=== PATIENT | female | born 1970 | race African-American/Black ===

== ENCOUNTER 2017-01-20 19:13 | Inpatient (IN) ==
[2017-01-20 20:02] LABS: MANUAL DIFF NEEDED? NO
[2017-01-20] MEDS ORDERED: NS 1,000 ML IV ONE (20:08)
[2017-01-20] MEDS ORDERED: ZOFRAN IV ONE (20:09)
[2017-01-20] MEDS ORDERED: DILAUDID IV ONE ×2 (20:09→22:02)
[2017-01-20 20:19] LABS: BASO% 0.1 % (0.0-0.8); EOS# 0.03 X1000 (0.0-0.7); EOS% 0.4 % (0.0-10.0); HEMOGLOBIN 12.9 g/dL (12.0-16.0); IMM GRAN# 0.02 X1000 (0.0-0.04); IMM GRAN% 0.2 % (0.0-0.5); LYMPH# 1.72 X1000 (1.2-3.4); LYMPH% 21.3 % (20.5-51.1); MCHC 31.5 g/dL (33-37); MCV 76.4 FL (81-99); MONO# 0.47 X1000 (0.11-0.59); MONO% 5.8 % (1.7-9.3); MPV 11.2 FL (7.4-10.4); NEUT% 72.2 % (42.2-75.2); PLT 293 X1000 (130-400); RBC 5.37 XMIL (4.2-5.4)
[2017-01-20] MEDS ORDERED: DILAUDID ONE (20:19)
[2017-01-20 20:39] LABS: AGAP 10; ALBUMIN 4.8 g/dL (3.5-5.0); ALKALINE PHOSPHATASE 83 U/L (32-104); AMYLASE 104 U/L (20-200); BUN 10 mg/dL (8-22); CALCIUM 10.7 mg/dL (8.8-10.2); CHLORIDE 101 mmol/L (98-107); COSMO 284; GOT 24 U/L (10-30); GPT 22 U/L (10-36); LIPASE 40 U/L (13-60); POTASSIUM 3.5 mmol/L (3.5-5.1); SODIUM 143 mmol/L (136-145); TCO2 32 mmol/L (25-35); TOTAL BILIRUBIN 0.39 mg/dL (0.20-1.00); TOTAL PROTEIN 8.8 g/dL (6.3-8.3)
[2017-01-20 22:01] LABS: URINE MICRO REVIEW NEEDED? NO; URINE SOURCE CLEAN CATCH
[2017-01-20 22:04] LABS: BILIRUBIN URINE NEGATIVE (NEGATIVE); BLOOD URINE NEGATIVE (NEGATIVE); COLOR YELLOW; GLUCOSE URINE NEGATIVE (NEGATIVE); LEUKOCYTES URINE NEGATIVE (NEGATIVE); NITRITE URINE NEGATIVE (NEGATIVE); PROTEIN URINE 30 mg/dL (NEGATIVE); TURBIDITY URINE CLEAR (CLEAR); UROBILINOGEN URINE NORMAL (NORMAL)
[2017-01-20 22:06] LABS: UR EPITHELIAL CELLS >10 /HPF (<10); URINE BACTERIA 2+ /HPF; URINE CULTURE NEEDED? YES; URINE RBC <10 /HPF (<10); URINE WBC <10 /HPF (<10)
[2017-01-20 22:14] LABS: SP GRAVITY URINE 1.005
[2017-01-20] MEDS ORDERED: SODIUM CHLORIDE 0.9% INJ ONE (22:46)
[2017-01-20] MEDS ORDERED: PHENERGAN IV ONE (22:46)
[2017-01-21] MEDS ORDERED: TYLENOL PO PRN (01:50)
[2017-01-21] MEDS ORDERED: ZOFRAN IV PRN (01:50)
[2017-01-21] MEDS ORDERED: ESTRADIOL TD SCH (01:50)
[2017-01-21] MEDS: NS 1,000 ML IV SCH ×2 (02:58→13:12)
[2017-01-21] MEDS: DILAUDID IV PRN ×4 (03:30→13:11)
[2017-01-21] MEDS: BENADRYL IV PRN ×2 (05:12→11:15)
[2017-01-21 06:08] LABS: MANUAL DIFF NEEDED? NO
[2017-01-21 06:17] LABS: BASO% 0.2 % (0.0-0.8); EOS# 0.02 X1000 (0.0-0.7); EOS% 0.3 % (0.0-10.0); HEMATOCRIT 38.1 % (37.0-47.0); HEMOGLOBIN 11.7 g/dL (12.0-16.0); LYMPH# 1.72 X1000 (1.2-3.4); LYMPH% 29.6 % (20.5-51.1); MCH 23.9 PG (27-31); MCHC 30.7 g/dL (33-37); MCV 77.8 FL (81-99); MONO# 0.58 X1000 (0.11-0.59); MPV 10.9 FL (7.4-10.4); NEUT% 59.9 % (42.2-75.2); PLT 231 X1000 (130-400)
[2017-01-21 06:35] LABS: INR 1.08; PROTIME 11.4 Seconds (9.2-11.7)
[2017-01-21 06:48] LABS: AGAP 9; ALBUMIN 4.2 g/dL (3.5-5.0); ALKALINE PHOSPHATASE 74 U/L (32-104); BUN 8 mg/dL (8-22); CALCIUM 8.8 mg/dL (8.8-10.2); CHLORIDE 104 mmol/L (98-107); COSMO 284; GOT 19 U/L (10-30); GPT 17 U/L (10-36); POTASSIUM 3.8 mmol/L (3.5-5.1); SODIUM 144 mmol/L (136-145); TCO2 31 mmol/L (25-35); TOTAL BILIRUBIN 0.37 mg/dL (0.20-1.00); TOTAL PROTEIN 7.1 g/dL (6.3-8.3)
[2017-01-21 09:42] LABS: URINE CULTURE NEEDED? NO; URINE MICRO REVIEW NEEDED? NO; URINE SOURCE CATH
[2017-01-21 09:53] LABS: BILIRUBIN URINE NEGATIVE (NEGATIVE); BLOOD URINE NEGATIVE (NEGATIVE); COLOR YELLOW; GLUCOSE URINE NEGATIVE (NEGATIVE); LEUKOCYTES URINE NEGATIVE (NEGATIVE); NITRITE URINE NEGATIVE (NEGATIVE); PH URINE 7.5; PROTEIN URINE TRACE mg/dL (NEGATIVE); TURBIDITY URINE CLEAR (CLEAR); UROBILINOGEN URINE NORMAL (NORMAL)
[2017-01-21 09:55] LABS: UR EPITHELIAL CELLS <10 /HPF (<10); URINE BACTERIA NEGATIVE /HPF; URINE RBC <10 /HPF (<10); URINE WBC <10 /HPF (<10)
[2017-01-21] MEDS ORDERED: CHLORASEPTIC SORE THROAT LOZENGE MT PRN (11:40)
[2017-01-21] MEDS: MORPHINE IV PRN ×2 (17:15→20:58)
[2017-01-21] MEDS ORDERED: CHLORASEPTIC SPRAY MT PRN (18:43)
[2017-01-21] MEDS ORDERED: DULCOLAX PR ONE (18:43)
[2017-01-22] MEDS: PROTONIX IV SCH ×3 (01:26→12:56)
[2017-01-22] MEDS: MORPHINE IV PRN ×5 (01:26→22:12)
[2017-01-22 06:40] LABS: MANUAL DIFF NEEDED? NO
[2017-01-22 06:58] LABS: BASO% 0.2 % (0.0-0.8); EOS# 0.04 X1000 (0.0-0.7); EOS% 0.7 % (0.0-10.0); HEMATOCRIT 33.7 % (37.0-47.0); HEMOGLOBIN 10.3 g/dL (12.0-16.0); LYMPH# 1.49 X1000 (1.2-3.4); LYMPH% 27.5 % (20.5-51.1); MCH 24.2 PG (27-31); MCHC 30.6 g/dL (33-37); MCV 79.1 FL (81-99); MONO# 0.73 X1000 (0.11-0.59); MONO% 13.5 % (1.7-9.3); MPV 11.4 FL (7.4-10.4); NEUT% 58.1 % (42.2-75.2); PLT 189 X1000 (130-400); RBC 4.26 XMIL (4.2-5.4)
[2017-01-22 07:03] LABS: AGAP 9; BUN 11 mg/dL (8-22); CALCIUM 9.1 mg/dL (8.8-10.2); CHLORIDE 104 mmol/L (98-107); COSMO 283; POTASSIUM 3.3 mmol/L (3.5-5.1); SODIUM 143 mmol/L (136-145); TCO2 30 mmol/L (25-35)
[2017-01-22] MEDS ORDERED: POTASSIUM CHLORIDE 40 MEQ in NS 250 ML IV ONE ×2 (09:00→10:00)
[2017-01-22] MEDS: NS 1,000 ML IV SCH ×2 (10:37→20:24)
[2017-01-22] MEDS: SODIUM CHLORIDE 0.9% INJ SCH (10:39)
[2017-01-22] MEDS: CORTISPORIN OTIC SUSP RIGHT EAR SCH ×3 (13:55→20:25)
[2017-01-22 19:43] LABS: MANUAL DIFF NEEDED? NO
[2017-01-22 19:48] LABS: EOS# 0.04 X1000 (0.0-0.7); EOS% 0.8 % (0.0-10.0); HEMATOCRIT 33.3 % (37.0-47.0); HEMOGLOBIN 10.2 g/dL (12.0-16.0); LYMPH# 1.07 X1000 (1.2-3.4); LYMPH% 20.8 % (20.5-51.1); MCH 24.2 PG (27-31); MCHC 30.6 g/dL (33-37); MCV 78.9 FL (81-99); MONO# 0.59 X1000 (0.11-0.59); MONO% 11.5 % (1.7-9.3); MPV 10.6 FL (7.4-10.4); NEUT% 66.9 % (42.2-75.2); PLT 184 X1000 (130-400); RBC 4.22 XMIL (4.2-5.4)
[2017-01-22] MEDS: FLAGYL 500 MG/NS 500 MG/100 ML IVPB IV SCH (20:24)
[2017-01-22 21:11] LABS: AGAP 13; BUN 11 mg/dL (8-22); CALCIUM 9.2 mg/dL (8.8-10.2); CHLORIDE 103 mmol/L (98-107); COSMO 280; POTASSIUM 3.9 mmol/L (3.5-5.1); SODIUM 141 mmol/L (136-145); TCO2 25 mmol/L (25-35)
[2017-01-22] MEDS: LEVAQUIN 750 MG/D5W 750 MG/150 ML IVPB IV SCH (22:13)
[2017-01-23] MEDS: NS 1,000 ML IV SCH ×4 (01:05→15:38)
[2017-01-23] MEDS: FLAGYL 500 MG/NS 500 MG/100 ML IVPB IV SCH ×4 (01:38→20:11)
[2017-01-23] MEDS: PROTONIX IV SCH ×2 (01:38→15:41)
[2017-01-23] MEDS: MORPHINE IV PRN ×2 (03:05→07:36)
[2017-01-23 07:25] LABS: AGAP 10; ALBUMIN 3.9 g/dL (3.5-5.0); ALKALINE PHOSPHATASE 62 U/L (32-104); BUN 8 mg/dL (8-22); CALCIUM 8.7 mg/dL (8.8-10.2); CHLORIDE 103 mmol/L (98-107); COSMO 273; GOT 15 U/L (10-30); GPT 11 U/L (10-36); POTASSIUM 3.8 mmol/L (3.5-5.1); SODIUM 138 mmol/L (136-145); TCO2 25 mmol/L (25-35); TOTAL BILIRUBIN 0.32 mg/dL (0.20-1.00); TOTAL PROTEIN 6.3 g/dL (6.3-8.3)
[2017-01-23] MEDS: PROZAC PO SCH ×2 (07:45→09:49)
[2017-01-23] MEDS: CORTISPORIN OTIC SUSP RIGHT EAR SCH ×5 (07:45→16:54)
[2017-01-23] MEDS ORDERED: ATIVAN IV PRN (09:11)
[2017-01-23] MEDS: BENADRYL IV PRN ×2 (11:23→20:11)
[2017-01-23] MEDS: SODIUM CHLORIDE 0.9% INJ SCH (15:41)
[2017-01-23] MEDS: DILAUDID IV PRN ×2 (15:41→20:12)
[2017-01-23] MEDS: LEVAQUIN 750 MG/D5W 750 MG/150 ML IVPB IV SCH (22:35)
[2017-01-24] MEDS: CORTISPORIN OTIC SUSP RIGHT EAR SCH ×4 (00:39→13:03)
[2017-01-24] MEDS: DILAUDID IV PRN ×2 (00:39→06:28)
[2017-01-24] MEDS: FLAGYL 500 MG/NS 500 MG/100 ML IVPB IV SCH ×2 (02:05→07:55)
[2017-01-24] MEDS: PROTONIX IV SCH (02:05)
[2017-01-24] MEDS: SODIUM CHLORIDE 0.9% INJ SCH (02:05)
[2017-01-24] MEDS: NS 1,000 ML IV SCH ×3 (02:05→07:55)
[2017-01-24] MEDS: BENADRYL IV PRN (06:28)
[2017-01-24] MEDS: LINZESS PO SCH ×2 (06:28→08:47)
[2017-01-24 07:52] VITALS: BP 135/82
[2017-01-24] MEDS: PROZAC PO SCH ×2 (07:53→08:00)
[2017-01-24] MEDS ORDERED: CIPRO PO SCH (09:00)
[2017-01-24] MEDS: FLAGYL PO SCH ×2 (09:48→13:02)
[2017-01-25] MEDS ORDERED: PROTONIX PO SCH (07:00)
[2017-01-25] MEDS ORDERED: DIFLUCAN PO SCH (09:00)
== END 2017-01-24 14:42 | disposition home or self-care (01) ==
LOC: ED 19:13 → SUATTDRO 01-21 00:28 → 4N 01-21 00:28
PROVIDERS: ADMIT Internal Medicine; ATTEND Internal Medicine